=== PATIENT | male | born 1985 | race Caucasian/White ===

== ENCOUNTER → 2019-11-18 | Day surgery (SDC) | payer BC ==
[~2019-11-18] MED LIST: Ketamine 200 MG/20 ML MDV IV ONE; Lactated Ringers 1,000 ML IV SCH; Propofol 200 MG/20 ML SDV IV ONE; fentaNYL 100 MCG/2 ML SDV IV ONE
[2019-11-18 11:59] VITALS: BP 108/73; PULSE 47
--- NOTE | 2019-11-21 08:47 | OR ---
DATE OF OPERATION: 11/18/2019 PREOPERATIVE DIAGNOSIS: ABNORMAL CT, POSSIBLE CROHN'S. POSTOPERATIVE DIAGNOSIS: ABNORMAL CT, POSSIBLE CROHN'S. SURGEON: Kang Oden MD PROCEDURE: FULL-LENGTH COLONOSCOPY WITH BIOPSIES X5. ANESTHESIA: MAC. COMPLICATIONS: None. SPECIMEN: 1. Terminal ileum biopsy x3. 2. Cecal pouch biopsy x2. FINDINGS: 1. Full-length colonoscopy. 2. Colitis, cecal pouch, minimally terminal ileum. RECOMMENDATIONS: Medical followup pending path report. INDICATIONS: The patient presented with acute colitis symptoms and the CT scan showed inflammation in and around the appendiceal orifice and cecal pouch, somewhat less of the terminal ileum. Dr. David Win sent him for a colonoscopy. The patient is essentially now asymptomatic after approximately a week. DESCRIPTION OF PROCEDURE: The patient was prepped and draped, placed in the left lateral decubitus position. A lubricated Olympus colonoscope was inserted and easily advanced to the cecal pouch. We were able to intubate into the terminal ileum. No gross abnormalities or signs of obvious Crohn's were seen in the terminal ileum. We did do 3 biopsies of the area. There maybe one faint little area of inflammation, but minimally so. Most of the patient's inflammation and friability was in and around the appendiceal orifice and cecal pouch itself. We did do 2 biopsies of those areas. The rest of the colon was grossly benign. Likely, patient had some scope trauma at the hepatic flexure, and we did biopsy that, although it appears like this was not an area of true colitis. Throughout the length of the colon, I could find no other signs of polyps, mass, ulceration, or bleeding sites. No further signs of colitis other than in the cecal pouch itself. Rectal vault appeared benign, retroflexion showed no perianal lesions. Air was suctioned, scope removed without complication. BETTY/JESUS MANUEL /[id number]
== END ==
LOC: CC.SDS 10:02
PROVIDERS: ATTEND Family Medicine
DX: K52.9 Noninfective gastroenteritis and colitis, unspecified (principal); K58.9 Irritable bowel syndrome, unspecified
CPT/HCPCS: 00811; J2704; J3010; J7120

== ENCOUNTER 2020-07-06 20:28 | Emergency (ER) | payer BC ==
[2020-07-06 20:45] VITALS: BP 124/72; PULSE 86
[2020-07-06] MEDS: Tetracaine HCl/PF 0.5% 4 ML Bottle EYELF ONE (20:51)
--- NOTE | 2020-07-06 21:04 | EDM.PDOC ---
ED HPI GENERAL MEDICAL PROBLEM - General Chief Complaint: ENT Problem Stated Complaint: foreign body in eye Time Seen by Provider: 07/06/20 20:37 Source of Information: Reports: Patient History Limitations: Reports: No Limitations - History of Present Illness INITIAL COMMENTS - FREE TEXT/NARRATIVE: This patient is a 35 year old male that presents to the ER. 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 He reports he thought it would work itself out, but has not. He reports today at about 5:30pm, he felt maybe he got more gravel in eye while under truck, so he should come get it looked at and not wait until Thursday. Patient denies vision loss. Denies blurry vision, pain. Reports FB sensation and watering. 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: Other (see below) Other Treatments MOVIE THEATER USHER: rinsed his eye out good with saline - Related Data Allergies Allergy/AdvReac Type Severity Reaction Status Date / Time No Known Allergies Allergy Verified 07/06/20 20:28 Home Meds: Home Meds Ibuprofen 200 mg PO Q6H PRN 11/16/19 [History] Past Medical History - Past Health History Medical/Surgical History: Denies Medical/Surgical History Musculoskeletal History: Reports: Fracture - Past Surgical History GI Surgical History: Reports: Appendectomy Musculoskeletal Surgical History: Reports: Other (See Below) Other Musculoskeletal Surgeries/Procedures:: surgical repair of arm/elbow fx Social & Family History - Family History Family Medical History: No Pertinent Family History ED ROS GENERAL - Review of Systems Review Of Systems: See Below Constitutional: Reports: No Symptoms HEENT: Reports: Other (left eye watering, left eye FB sensation) Respiratory: Reports: No Symptoms Cardiovascular: Reports: No Symptoms Endocrine: Reports: No Symptoms GI/Abdominal: Reports: No Symptoms Skin: Reports: No Symptoms Neurological: Reports: No Symptoms Psychiatric: Reports: No Symptoms Immunologic: Reports: No Symptoms ED EXAM GENERAL W FULL EYE - Physical Exam Exam: See Below Exam Limited By: No Limitations General Appearance: Alert, WD/WN, No Apparent Distress Eye Exam: Left Eye: Conjunctival Injection, Corneal Abrasion, Bilateral Eye: EOMI, PERRL Eyelids: Bilateral: Normal Appearance Conjunctiva & Sclera: Left: Injected Cornea Exam: Left: Corneal Abrasion, Examined with Flourescein Extraocular Movements: Bilateral: Intact Pupils: Normal Accommodation Pupillary Size: Bilateral: 4 mm Pupillary Reaction: Bilateral: Brisk Anterior Chamber: Bilateral: Normal Appearance Posterior Chamber: Bilateral: Normal Funduscopic Ears: Normal External Exam, Normal Canal, Hearing Grossly Normal, Normal TMs Nose: Normal Inspection, Normal Mucosa, No Blood Throat/Mouth: Normal Inspection, Normal Lips, Normal Teeth Head: Atraumatic, Normocephalic Course - Vital Signs Last Recorded V/S: Last Vital Signs Temp 97.5 F 07/06/20 20:30 Pulse 86 07/06/20 20:30 Resp 16 07/06/20 20:30 BP 124/72 07/06/20 20:30 Pulse Ox 96 07/06/20 20:30 - Orders/Labs/Meds Orders: Active Orders 24 hr Category Date Time Status Gentamicin [Gentak 0.3% Ophth Oint] Med 07/06/20 20:55 Active 3.5 gm EYELF TID Medication Orders Gentamicin Sulfate (Gentamicin 0.3% Ophth Oint 3.5 Gm Tube) 3.5 gm EYELF TID PETE Last Admin: 07/06/20 20:56 Dose: 1 applic Documented by: DIANELYS Meds: Medications Generic Name Dose Route Start Last Admin Trade Name Freq PRN Reason Stop Dose Admin Gentamicin Sulfate 3.5 gm 07/06/20 20:55 07/06/20 20:56 Gentamicin 0.3% Ophth Oint 3.5 Gm Tube EYELF 1 applic TID PETE Administration Discontinued Medications Generic Name Dose Route Start Last Admin Trade Name Freq PRN Reason Stop Dose Admin Tetracaine HCl 4 ml 07/06/20 20:42 07/06/20 20:51 Tetracaine Hcl/Pf 0.5% 4 Ml Bottle EYELF 07/06/20 20:43 5 drop ASDIRECTED ONE Administration Departure - Departure Time of Disposition: 21:00 Disposition: Home, Self-Care 01 Condition: Fair Clinical Impression: Corneal abrasion, left Qualifiers: Encounter type: initial encounter Qualified Code(s): S05.02XA - Injury of conjunctiva and corneal abrasion without foreign body, left eye, initial encounter - Discharge Information *PRESCRIPTION DRUG MONITORING PROGRAM REVIEWED*: Not Applicable *COPY OF PRESCRIPTION DRUG MONITORING REPORT IN PATIENT ELIGIO: Not Applicable Instructions: Eye Foreign Body, [id number], Corneal Abrasion, [id number] Referrals: PCP,Unknown [Primary Care Provider] - Forms: ED Department Discharge Additional Instructions: Followup with redeye gunner Thursday Return to the ER for worsening of condition or any emergent concerns Gentamycin opth ointment ribbon to the eye three times a day #1 tube no refill given in ER Sepsis Event Note (ED) - Evaluation Sepsis Screening Result: No Definite Risk - Focused Exam Vital Signs: Vital Signs Temp Pulse Resp BP Pulse Ox 07/06/20 20:30 97.5 F 86 16 124/72 96 - My Orders Last 24 Hours: My Active Orders 07/06/20 20:55 Gentamicin [Gentak 0.3% Ophth Oint] 3.5 gm EYELF TID - Assessment/Plan Last 24 Hours: My Active Orders 07/06/20 20:55 Gentamicin [Gentak 0.3% Ophth Oint] 3.5 gm EYELF TID Plan: PLEASE SEE RN NOTE FOR PFSH
== END 2020-07-06 21:05 | disposition home or self-care (01) ==
LOC: CC.ED 20:28
DX: S05.02XA Injury of conjunctiva and corneal abrasion without foreign body, left eye, initial encounter (principal); W22.8XXA Striking against or struck by other objects, initial encounter; Y99.0 Civilian activity done for income or pay
CPT/HCPCS: 99283

== ENCOUNTER 2022-01-04 15:50 | Emergency (ER) | payer BC ==
[2022-01-04 16:01] VITALS: BP 120/60; PULSE 73
[2022-01-04] MEDS: HYDROmorphone 1 MG/ML Syringe IM ONE (16:09)
[2022-01-04] MEDS: Ondansetron 4 MG Tab.DIS PO ONE (16:11)
[2022-01-04] MEDS: Diphtheria,Pertussis(Acell),Tetanus Vaccine 0.5 ML Syringe IM ONE (16:27)
[2022-01-04] MEDS: Lidocaine 1% 5 ML VIAL INJECT ONE (16:39)
== END 2022-01-04 18:30 | disposition home or self-care (01) ==
LOC: CC.ED 15:50
DX: S01.511A Laceration without foreign body of lip, initial encounter (principal); S00.83XA Contusion of other part of head, initial encounter; Z23 Encounter for immunization; W22.8XXA Striking against or struck by other objects, initial encounter
CPT/HCPCS: 12011; 70486; 90471; 90715; 96372; 99283; 99283-25; A9270-GY; J1170

== ENCOUNTER 2024-01-18 21:39 | Emergency (ER) | payer BC ==
[2024-01-18 21:46] VITALS: BP 113/76; PULSE 84
[2024-01-18] MEDS: HYDROmorphone 0.5 MG/0.5 ML Syringe SUBCUT STA (21:53)
[2024-01-18] MEDS: Ondansetron 4 MG Tab.DIS PO ONE (22:15)
[2024-01-18] MEDS: Take Home: Acetaminophen/HYDROcodone 325-5 MG, 2 Tab Pack PO ONE (22:50)
== END 2024-01-18 22:55 | disposition home or self-care (01) ==
LOC: CC.ED 21:39
DX: S82.832A Other fracture of upper and lower end of left fibula, initial encounter for closed fracture (principal); Z90.49 Acquired absence of other specified parts of digestive tract; Y93.72 Activity, wrestling
CPT/HCPCS: 29515; 73610-LT; 96372; 99283-25; A9270-GY; J1171